=== PATIENT | female | born 1955 | race Caucasian/White ===

== ENCOUNTER → 2017-05-15 | Outpatient (CLI) | payer BC ==
[~2017-05-15] MED LIST: ASPCH81X PO; CHOL20007 PO; LORA-554 PO; LOVA20TA4 PO; MULT1CAP6 PO; OMEGCAP2 PO; OMEP20TA PO; VITACAP26 PO
--- NOTE | 2017-05-16 13:46 | MAMMOGRAPHY REPORT ---
BILATERAL DIGITAL SCREENING MAMMOGRAM TOMOSYNTHESIS WITH CAD: 05/15/2017 CLINICAL HISTORY: Routine screening. Patient has no complaints. TECHNIQUE: Breast tomosynthesis in addition to standard 2D mammography was performed. Current study was also evaluated with a Computer Aided Detection (CAD) system. COMPARISON: Comparison is made to exams dated: 03/07/2016 mammogram, 02/11/2015 mammogram, 07/24/2013 m ammogram, 07/11/2012 mammogram, 01/25/2011 mammogram - [facility], and 08/12/2009 mammo gram. BREAST COMPOSITION: There are scattered areas of fibroglandular density in both breasts. FINDINGS: The parenchymal pattern is similar to prior mammograms. There are stable asymmetries in t he left breast. No developing mass, architectural distortion or cluster of suspicious microcalcifica tions is seen. IMPRESSION: ACR BI-RADS CATEGORY 2: BENIGN There is no mammographic evidence of malignancy. A 1 year screening mammogram is recommended. The pa tient will receive written notification of the results. Approximately 10% of breast cancers are not detected with mammography. A negative mammographic report should not delay biopsy if a clinically suggestive mass is present. Mayda Noyola M.D. ay/:05/15/2017 16:02:51 Interior Painter: Rajani Pringle, [facility] letter sent: Normal 1/2 BI-RADS Code: ACR BI-RADS Category 2: Benign
== END | disposition home or self-care (01) ==
LOC: C.MAMM 11:32
PROVIDERS: ATTEND Family Medicine
DX: Z12.31 Encounter for screening mammogram for malignant neoplasm of breast (principal)

== ENCOUNTER → 2017-09-16 | Outpatient (CLI) | payer OTHER ==
--- NOTE | 2017-09-16 09:27 | DIAGNOSTIC IMAGING REPORT ---
(BARIUM SWALLOW) ESOPHAGUS CLINICAL HISTORY: 62 years-old Female with DYSPHAGIA. Acute cough with dysphagia and epigastric abdominal pain TECHNIQUE: Barium contrast and effervescent crystals were administered to the patient under fluoroscopic examination. Multiple images were obtained and submitted for review. FLUOROSCOPY TIME: 1 minutes. 24 images were submitted. COMPARISON: None. Findings: During deglutition, contrast material flowed freely through the cervical esophagus. No filling defect or mucosal abnormality is identified. No abnormal stricturing or mass effect is seen. The mid to distal esophagus is well coated and distended. No abnormal stricturing or mucosal abnormality is identified. Trace amount of silent aspiration was noted. Technologist prompted the patient to cough which only partially cleared the barium from the glottis. Small sliding-type hiatal hernia with extensive gastroesophageal reflux extending to the level of the upper thoracic esophagus. Mild esophageal dysmotility with some tertiary contractions of the distal esophagus. IMPRESSION: 1. Trace amount of silent aspiration. Further evaluation with speech pathology recommended. 2. Hiatal hernia with extensive gastroesophageal reflux extending to the upper thoracic esophagus. 3. Mild esophageal dysmotility. The above report was generated using voice recognition software. It may contain grammatical, syntax or spelling errors. Electronically signed by: Johny Marcelo M.D. 09/16/2017 9:26 AM Dictated Date/Time: 09/16/2017 9:23 AM
== END | disposition home or self-care (01) ==
LOC: C.RAD 08:25
PROVIDERS: ATTEND Family Medicine
DX: R13.10 Dysphagia, unspecified (principal); K44.9 Diaphragmatic hernia without obstruction or gangrene; K22.4 Dyskinesia of esophagus

== ENCOUNTER 2024-05-07 20:49 | Observation (INO) ==
[2024-05-07 21:28] LABS: iSTAT Creatinine 0.7 mg/dl (0.6-1.3); iSTAT Hemoglobin 16.7 g/dl (12.0-16.0); iSTAT Ionized Calcium 1.17 mmol/l (1.12-1.32); iSTAT Potassium 3.9 mmol/L (3.3-5.0)
[2024-05-07 21:34] LABS: Appearance Urine Cloudy (Clear); Bacteria Urine Automated None Seen (None Seen); Bilirubin Urine Negative (Negative); Blood Urine Negative (Negative); Cast Urine Automated 0-2 /lpf (0-2); Color Urine Yellow; Glucose Urine UA Negative (Negative); Ketones Urine Trace (Negative); Leukocyte Esterase Urine 2+ (Negative); Nitrite Urine Negative (Negative); Protein Urine Negative (Negative); RBC Urine Automated 0-2 /hpf (0-2); Specific Gravity Urine 1.018 (1.000-1.030); Urobilinogen Urine Negative (Negative); WBC Urine Automated 21-50 /hpf (0-5); pH Urine 7.5 (4.5-7.5)
[2024-05-07 21:39] LABS: Albumin Globulin Ratio 1.6 (0.9-2); Albumin Level 4.6 gm/dl (3.4-5.0); BUN Creatinine Ratio 18.8 (10-20); Basophils # (auto) 0.05 K/uL (0.00-0.20); Basophils % (auto) 0.3 %; Bilirubin,Total 1.5 mg/dl (0.2-1.0); Calcium 9.7 mg/dl (8.6-10.3); Creatinine Clr Calc Pharmacy 76.9 ml/min; Eosinophils # (auto) 0.04 K/uL (0.00-0.50); Eosinophils % (auto) 0.2 %; Globulin 2.9 gm/dl (2.5-4.0); Hematocrit (blood only) 46.1 % (37.0-47.0); Hemoglobin 16.4 g/dl (12.0-16.0); Immature Granulocytes # (auto) 0.11 K/uL (0.01-0.20); Immature Granulocytes % (auto) 0.6 %; Lymphocytes # (auto) 2.38 K/uL (1.20-3.40); Lymphocytes % (auto) 12.5 %; Mean Corpuscular Hemoglobin 30.9 pg (25.0-34.0); Mean Corpuscular Hgb Conc 35.6 g/dL (32.0-36.0); Mean Corpuscular Volume 86.8 fL (80.0-100.0); Mean Platelet Volume 8.7 fL (9.4-12.4); Monocytes # (auto) 1.59 K/uL (0.11-0.59); Monocytes % (auto) 8.4 %; Platelet Count 329 K/uL (130-400); RDW Coefficient of Variation 12.9 % (11.5-14.5); RDW Standard Deviation 40.4 fL (36.4-46.3); Red Blood Count 5.31 M/uL (4.20-5.40); Total Protein 7.5 gm/dl (6.0-8.3); White Blood Count 18.97 K/ul (4.8-10.8)
[2024-05-07] MEDS: OPTIRAY 320 100ml IV ONE (21:40)
[2024-05-07 21:45] LABS: Troponin I High Sensitivity 20.8 pg/ml (0-14)
--- NOTE | 2024-05-07 21:58 | Emergency Department Note ---
ED Provider Note History of Present Illness Chief Complaint: Abdominal Pain Stated Complaint: ABD PAIN, BACK PAIN, NAUSEA, Time Seen by Provider: 05/07/24 21:02 Source: patient Mode of arrival: ambulatory Limitations: no limitations This patient is a 69-year-old female who presents to the emergency department for evaluation of right lower quadrant abdominal pain. Patient reports that pain started around 2:30 AM and has been constant since. Pain is in the right lower abdomen. She states this is worse when she walks or moves. She has had some nausea and did vomit once this morning. She denies any fever/chills, urinary symptoms or changes in bowel movements. She denies any history of abdominal surgery. Home Medications Medication Instructions Recorded Confirmed Type ASPIRIN (ASPIRIN CHEWABLE) 81 mg PO DAILY ##0 09/26/12 History CHOLECALCIFEROL (VITAMIN D3) 1 tab PO QAM ##0 09/26/12 History LORATADINE (ALLERGY RELIEF) 1 tab PO QAM ##0 09/26/12 History Lovastatin (Mevacor) 20 mg PO DAILY #0 tabs 09/26/12 History MULTIPLE VITAMINS W/ MINERALS 1 tab PO QD@08 ##0 09/26/12 History (MULTI FOR HER) OMEGA-3 FATTY ACIDS (FISH OIL) 1 cap PO QAM ##0 09/26/12 History OMEPRAZOLE 1 tab PO QAM ##0 09/26/12 History VITAMINS C & E (VITAMIN C) 1 cap PO QAM ##0 09/26/12 History Allergies Allergy/AdvReac Type Severity Reaction Status Date / Time Penicillins Allergy Unknown ` Verified 04/29/15 13:47 Sulfa (Sulfonamide Allergy Unknown ` Verified 09/25/12 15:24 Antibiotics) Tetracyclines Allergy Unknown ` Verified 09/25/12 15:24 Past Med/Surg History Problem List Medical History (Updated 05/08/24 @ 01:29 by Homero Whelan MD) Encounter for pre-operative examination Acute appendicitis Social History Smoking Status: Never smoker Preferred Language: Burkinan Feels Safe at Home: Yes Physical Exam Vital Signs Vital Signs - 24 hr 05/07/24 20:51 05/07/24 21:20 05/07/24 21:20 Temperature 37.3 C Temperature Source Temporal Artery Scan Pulse Rate 106 H Pulse Rate [Finger] 91 H Pulse Rhythm [Finger] Pulse Strength [Finger] Respiratory Rate 18 Respiratory Effort / Characteristics Non-Labored Spontaneous Respiratory Depth Normal Normal Respiratory Pattern Regular Blood Pressure 150/76 H Blood Pressure [Right Arm] Blood Pressure Mean 100 Blood Pressure Mean [Right Arm] Blood Pressure Position Sitting Blood Pressure Position [Right Arm] Pulse Oximetry 96 Oxygen Delivery Method Room Air Room Air Room Air Sepsis Recent Fever Within 48 Hours No Sepsis New/Unexplained Change in Mental Status N/A Sepsis Action Taken by Nursing No Action Required 05/07/24 22:04 05/07/24 23:00 05/08/24 01:00 Temperature Temperature Source Pulse Rate 83 Pulse Rate [Finger] 82 78 Pulse Rhythm [Finger] Regular Regular Pulse Strength [Finger] Normal Normal Respiratory Rate 20 20 Respiratory Effort / Characteristics Non-Labored Spontaneous Non-Labored Respiratory Depth Normal Normal Respiratory Pattern Blood Pressure Blood Pressure [Right Arm] 119/69 105/68 Blood Pressure Mean Blood Pressure Mean [Right Arm] 85 80 Blood Pressure Position Blood Pressure Position [Right Arm] Lying Pulse Oximetry 96 96 Oxygen Delivery Method Room Air Room Air Sepsis Recent Fever Within 48 Hours Sepsis New/Unexplained Change in Mental Status Sepsis Action Taken by Nursing 05/08/24 01:16 Temperature Temperature Source Pulse Rate Pulse Rate [Finger] Pulse Rhythm [Finger] Pulse Strength [Finger] Respiratory Rate Respiratory Effort / Characteristics Respiratory Depth Respiratory Pattern Blood Pressure Blood Pressure [Right Arm] Blood Pressure Mean Blood Pressure Mean [Right Arm] Blood Pressure Position Blood Pressure Position [Right Arm] Pulse Oximetry Oxygen Delivery Method Room Air Sepsis Recent Fever Within 48 Hours Sepsis New/Unexplained Change in Mental Status Sepsis Action Taken by Nursing VITALS: Vitals are noted on the nurse's note and reviewed by myself. GENERAL: This is a 69-year-old female, in no acute distress, well-developed well-nourished. SKIN: The skin was without rashes. EYES: Pupils equal round and reactive to light and accommodation. MOUTH: Mucous membranes moist. HEART: Regular rate and rhythm without murmurs gallops or rubs. LUNGS: Clear to auscultation bilaterally without wheezes, rales or rhonchi. ABDOMEN: Positive bowel sounds x 4. Moderate tenderness in the right lower quadrant with positive guarding and rebound tenderness. NEURO: Patient was alert and oriented to person place and time. Course Administered Medications Discontinued Medications Fentanyl Citrate (Fentanyl Citrate Pf 100 Mcg/2 Ml Vial) 50 mcg IV NOW STA Stop: 05/07/24 21:56 Last Admin: 05/07/24 22:08 Dose: 50 mcg Documented By: GINA Levofloxacin/Dextrose (Levaquin/D5w) 500 mg in 100 mls @ 100 mls/hr IV NOW STA Stop: 05/08/24 00:51 Last Admin: 05/08/24 01:02 Dose: 100 mls/hr Documented By: GINA Metronidazole (Flagyl) 500 mg in 100 mls @ 100 mls/hr IV NOW STA; Protocol Stop: 05/08/24 00:51 Last Admin: 05/08/24 01:02 Dose: 100 mls/hr Documented By: GINA Ioversol (Optiray 320 100ml) 92 ml IV ONCE ONE Stop: 05/07/24 21:40 Last Admin: 05/07/24 21:40 Dose: 92 ml Documented By: DARSHAN Morphine Sulfate (Morphine Sulfate 4 Mg/Ml 1 Ml Carp\Vial) 4 mg IV NOW STA Stop: 05/07/24 23:42 Last Admin: 05/07/24 23:45 Dose: 4 mg Documented By: GINA Ondansetron HCl (Ondansetron Inj 2 Mg/Ml 2 Ml Vial) 4 mg IV NOW STA Stop: 05/07/24 21:56 Last Admin: 05/07/24 22:09 Dose: 4 mg Documented By: GINA Medical Decision Making Differential Diagnosis Appendicitis, ovarian cyst, ovarian torsion, ectopic , TOA, PID, infections, diverticulitis, UTI, obstruction, mesenteric ischemia, aortic pathology, inflammatory bowel disease, renal colic, PUD, pancreatitis, biliary pathology, hernia, volvulus, constipation, as well as other pathologies. Laboratory Data Attestation: I reviewed the patient's lab results. 05/07/24 21:10 05/07/24 21:10 Lab Results 05/07/24 05/07/24 05/07/24 Range/Units 21:10 21:15 21:16 WBC 18.97 H (4.8-10.8) K/ul RBC 5.31 (4.20-5.40) M/uL Hgb 16.4 H (12.0-16.0) g/dl POC Hgb 16.7 H (12.0-16.0) g/dl Hct 46.1 (37.0-47.0) % POC Hct 49 H (37-47) % MCV 86.8 (80.0-100.0) fL MCH 30.9 (25.0-34.0) pg MCHC 35.6 (32.0-36.0) g/dL RDW Std Deviation 40.4 (36.4-46.3) fL RDW Coeff of Aman 12.9 (11.5-14.5) % Plt Count 329 (130-400) K/uL MPV 8.7 L (9.4-12.4) fL Immature Gran % (Auto) 0.6 % Neut % (Auto) 78.0 % Lymph % (Auto) 12.5 % Austin % (Auto) 8.4 % Eos % (Auto) 0.2 % Baso % (Auto) 0.3 % Neut # (Auto) 14.80 H (1.40-6.50) K/uL Lymph # (Auto) 2.38 (1.20-3.40) K/uL Austin # (Auto) 1.59 H (0.11-0.59) K/uL Eos # (Auto) 0.04 (0.00-0.50) K/uL Baso # (Auto) 0.05 (0.00-0.20) K/uL Immature Gran # (Auto) 0.11 (0.01-0.20) K/uL PT 11.0 (9.0-12.0) Seconds INR 1.0 (0.9-1.1) POC Sodium 134 L (135-144) mmol/L Sodium 133 L (136-145) mmol/L POC Potassium 3.9 (3.3-5.0) mmol/L Potassium 4.0 (3.5-5.1) mmol/L POC Chloride 99 L (101-112) mmol/L Chloride 100 (98-107) mmol/L Carbon Dioxide 23 (21-32) mmol/L POC Total CO2 22 L (24-31) mmol/L Anion Gap 10 (3-11) POC Anion Gap 17.0 (16-25) mmol/L POC BUN 13 (7-18) mg/dl BUN 13 (6-23) mg/dl Creatinine 0.69 (0.6-1.2) mg/dl POC Creatinine 0.7 (0.6-1.3) mg/dl Est Cr Clr Drug Dosing 76.9 ml/min eGFR 95.06 BUN/Creatinine Ratio 18.8 (10-20) Glucose 121 H (70-99(Fasting)) mg/dl POC Glucose (other) 120 H (70-99) mg/dl Lactate 1.4 (0.4-2.0) mmol/L Calcium 9.7 (8.6-10.3) mg/dl POC Ioniz Calcium Taras 1.17 (1.12-1.32) mmol/l Total Bilirubin 1.5 H (0.2-1.0) mg/dl AST 14 (13-39) U/L ALT 17 (7-52) U/L Alkaline Phosphatase 78 (34-104) U/L Troponin I High Sens 20.8 H (0-14) pg/ml Total Protein 7.5 (6.0-8.3) gm/dl Albumin 4.6 (3.4-5.0) gm/dl Globulin 2.9 (2.5-4.0) gm/dl Albumin/Globulin Ratio 1.6 (0.9-2) Lipase 19 (11-82) U/L Urine Color Yellow Urine Appearance Cloudy A (Clear) Urine pH 7.5 (4.5-7.5) Ur Specific Brule 1.018 (1.000-1.030) Urine Protein Negative (Negative) Urine Glucose (UA) Negative (Negative) Urine Ketones Trace H (Negative) Urine Blood Negative (Negative) Urine Nitrite Negative (Negative) Urine Bilirubin Negative (Negative) Urine Urobilinogen Negative (Negative) Ur Leukocyte Esterase 2+ H (Negative) Urine WBC (Auto) 21-50 H (0-5) /hpf Urine RBC (Auto) 0-2 (0-2) /hpf U Hyaline Cast (Auto) 0-2 (0-2) /lpf U Epithel Cells (Auto) 3-5 H (0-2) /hpf Urine Bacteria (Auto) None Seen (None Seen) 05/07/24 Range/Units 23:15 WBC (4.8-10.8) K/ul RBC (4.20-5.40) M/uL Hgb (12.0-16.0) g/dl POC Hgb (12.0-16.0) g/dl Hct (37.0-47.0) % POC Hct (37-47) % MCV (80.0-100.0) fL MCH (25.0-34.0) pg MCHC (32.0-36.0) g/dL RDW Std Deviation (36.4-46.3) fL RDW Coeff of Aman (11.5-14.5) % Plt Count (130-400) K/uL MPV (9.4-12.4) fL Immature Gran % (Auto) % Neut % (Auto) % Lymph % (Auto) % Austin % (Auto) % Eos % (Auto) % Baso % (Auto) % Neut # (Auto) (1.40-6.50) K/uL Lymph # (Auto) (1.20-3.40) K/uL Austin # (Auto) (0.11-0.59) K/uL Eos # (Auto) (0.00-0.50) K/uL Baso # (Auto) (0.00-0.20) K/uL Immature Gran # (Auto) (0.01-0.20) K/uL PT (9.0-12.0) Seconds INR (0.9-1.1) POC Sodium (135-144) mmol/L Sodium (136-145) mmol/L POC Potassium (3.3-5.0) mmol/L Potassium (3.5-5.1) mmol/L POC Chloride (101-112) mmol/L Chloride (98-107) mmol/L Carbon Dioxide (21-32) mmol/L POC Total CO2 (24-31) mmol/L Anion Gap (3-11) POC Anion Gap (16-25) mmol/L POC BUN (7-18) mg/dl BUN (6-23) mg/dl Creatinine (0.6-1.2) mg/dl POC Creatinine (0.6-1.3) mg/dl Est Cr Clr Drug Dosing ml/min eGFR BUN/Creatinine Ratio (10-20) Glucose (70-99(Fasting)) mg/dl POC Glucose (other) (70-99) mg/dl Lactate (0.4-2.0) mmol/L Calcium (8.6-10.3) mg/dl POC Ioniz Calcium Taras (1.12-1.32) mmol/l Total Bilirubin (0.2-1.0) mg/dl AST (13-39) U/L ALT (7-52) U/L Alkaline Phosphatase (34-104) U/L Troponin I High Sens 24.3 H (0-14) pg/ml Total Protein (6.0-8.3) gm/dl Albumin (3.4-5.0) gm/dl Globulin (2.5-4.0) gm/dl Albumin/Globulin Ratio (0.9-2) Lipase (11-82) U/L Urine Color Urine Appearance (Clear) Urine pH (4.5-7.5) Ur Specific Brule (1.000-1.030) Urine Protein (Negative) Urine Glucose (UA) (Negative) Urine Ketones (Negative) Urine Blood (Negative) Urine Nitrite (Negative) Urine Bilirubin (Negative) Urine Urobilinogen (Negative) Ur Leukocyte Esterase (Negative) Urine WBC (Auto) (0-5) /hpf Urine RBC (Auto) (0-2) /hpf U Hyaline Cast (Auto) (0-2) /lpf U Epithel Cells (Auto) (0-2) /hpf Urine Bacteria (Auto) (None Seen) Imaging Data Attestation: I personally reviewed and interpreted this imaging study as follows: Radiologist's Impression: Abdomen/Pelvis CT 05/07/24 20:59 Exam(s): CT ABDOMEN + PELVIS With Contrast IV Amt: 92 ml opti 320 EXAM: CT Abdomen and Pelvis With Intravenous Contrast CLINICAL HISTORY: RLQ abd pain. TECHNIQUE: Axial computed tomography images of the abdomen and pelvis with intravenous contrast. CTDI is 21.53 mGy and DLP is 1025.75 mGy-cm. Automated exposure control was utilized for the study. A dose lowering technique was utilized adhering to the principles of ALARA. CONTRAST: Patient received 92 ml opti 320 of IV contrast COMPARISON: No relevant prior studies available. FINDINGS: Lung bases: Unremarkable. No mass. No consolidation. ABDOMEN: Liver: Unremarkable. No mass. Gallbladder and bile ducts: Unremarkable. No calcified stones. No ductal dilation. Pancreas: Unremarkable. No mass. No ductal dilation. Spleen: Unremarkable. No splenomegaly. Adrenals: Unremarkable. No mass. Kidneys and ureters: No obstructive uropathy. No obstructing renal or ureteral calculi. No hydronephrosis or hydroureter. Stomach and bowel: Moderate size hiatal hernia. No obstruction or ileus. No evidence for diverticulitis. PELVIS: Appendix: Diffusely enlarged appendix up to 11.8 mm diameter with thickened bejarano multiple appendicoliths. Mild surrounding infiltration with minimal associated free fluid. No free intraperitoneal gas. Bladder: Unremarkable. No mass. Reproductive: Uterus is unremarkable. Ovaries are not well characterized. ABDOMEN and PELVIS: Intraperitoneal space: No free air. No free fluid. Bones/joints: No acute fracture. Degenerative changes of the spine. Soft tissues: Unremarkable. Vasculature: Atherosclerotic vascular calcifications. No abdominal aortic aneurysm. Lymph nodes: Unremarkable. No enlarged lymph nodes. IMPRESSION: Acute appendicitis with appendicoliths. Mild surrounding infiltration and minimal free fluid. No free intraperitoneal gas to indicate a perforation. Electronically signed by: Nick Elaine M.D. 05/07/24 22:34 PM MDM Narrative This patient is a 69-year-old female who presents to the emergency department for evaluation of right lower quadrant abdominal pain. Labs revealed a leukocytosis of almost 19,000. Lactate was not elevated. Patient treated with IV fentanyl, Zofran and then morphine for pain. CT showed evidence of acute appendicitis. This was discussed with the patient. Case was then discussed with general surgery who agreed to evaluate the patient and take her for operative management. She will be admitted by them. She was given a dose of Levaquin/Flagyl due to penicillin allergy. All findings discussed with the patient. She remained in stable condition while in the emergency department. Discharge Plan Visit Data Chief Complaint: Abdominal Pain Stated Complaint: ABD PAIN, BACK PAIN, NAUSEA, ED Provider: Aren Granados ED Midlevel Provider: Chantel Hogan Patient Disposition: Admitted As Inpatient Discharge Instructions Interventions: ED Discharge Assessment Last Done: 05/08/24 01:16 Forms Stand Alone Forms: My [employer] Prescriptions Prescriptions: No Action ASPIRIN (ASPIRIN CHEWABLE) 81 MG CHEWABLE TAB 81 mg PO DAILY Qty: 0 MULTIPLE VITAMINS W/ MINERALS (MULTI FOR HER) 1 CAP capsule 1 tab PO QD@08 Qty: 0 CHOLECALCIFEROL (VITAMIN D3) 2,000 UNIT tablet 1 tab PO QAM Qty: 0 LORATADINE (ALLERGY RELIEF) 10 MG tablet 1 tab PO QAM Qty: 0 Lovastatin (Mevacor) 20 MG tablet 20 mg PO DAILY Qty: 0 OMEGA-3 FATTY ACIDS (FISH OIL) 1 CAP capsule 1 cap PO QAM Qty: 0 OMEPRAZOLE 20 MG tablet 1 tab PO QAM Qty: 0 VITAMINS C & E (VITAMIN C) 1 CAP capsule 1 cap PO QAM Qty: 0 Referrals Referrals: Brooklyn Painting MD [Primary Care Provider] -
[2024-05-07] MEDS: fentaNYL citrate PF 100 MCG/2 ML VIAL IV STA (22:08)
[2024-05-07] MEDS: ONDANSETRON INJ 2 MG/ML 2 ML VIAL IV STA (22:09)
--- NOTE | 2024-05-07 22:35 | CT Scan Report ---
Exam(s): CT ABDOMEN + PELVIS With Contrast IV Amt: 92 ml opti 320 EXAM: CT Abdomen and Pelvis With Intravenous Contrast CLINICAL HISTORY: RLQ abd pain. TECHNIQUE: Axial computed tomography images of the abdomen and pelvis with intravenous contrast. CTDI is 21.53 mGy and DLP is 1025.75 mGy-cm. Automated exposure control was utilized for the study. A dose lowering technique was utilized adhering to the principles of ALARA. CONTRAST: Patient received 92 ml opti 320 of IV contrast COMPARISON: No relevant prior studies available. FINDINGS: Lung bases: Unremarkable. No mass. No consolidation. ABDOMEN: Liver: Unremarkable. No mass. Gallbladder and bile ducts: Unremarkable. No calcified stones. No ductal dilation. Pancreas: Unremarkable. No mass. No ductal dilation. Spleen: Unremarkable. No splenomegaly. Adrenals: Unremarkable. No mass. Kidneys and ureters: No obstructive uropathy. No obstructing renal or ureteral calculi. No hydronephrosis or hydroureter. Stomach and bowel: Moderate size hiatal hernia. No obstruction or ileus. No evidence for diverticulitis. PELVIS: Appendix: Diffusely enlarged appendix up to 11.8 mm diameter with thickened bejarano multiple appendicoliths. Mild surrounding infiltration with minimal associated free fluid. No free intraperitoneal gas. Bladder: Unremarkable. No mass. Reproductive: Uterus is unremarkable. Ovaries are not well characterized. ABDOMEN and PELVIS: Intraperitoneal space: No free air. No free fluid. Bones/joints: No acute fracture. Degenerative changes of the spine. Soft tissues: Unremarkable. Vasculature: Atherosclerotic vascular calcifications. No abdominal aortic aneurysm. Lymph nodes: Unremarkable. No enlarged lymph nodes. IMPRESSION: Acute appendicitis with appendicoliths. Mild surrounding infiltration and minimal free fluid. No free intraperitoneal gas to indicate a perforation. Electronically signed by: Nick Elaine M.D. 05/07/24 22:34 PM
[2024-05-07] MEDS: MoRPHine SULFATE 4 MG/ML 1 ML CARP\\VIAL IV STA (23:45)
--- NOTE | 2024-05-08 00:55 | History & Physical Report ---
<Statement entered by Ariana Gómez, - 05/08/24 01:49> I have seen and examined this patient. I agree with the above plan. She has a very enlarged appendix with fecaliths. We will proceed to the OR for laparoscopic appendectomy. Consent has been obtained. Date of Service May 08, 2024 Assessment & Plan (1) Acute appendicitis: Plan: Patient is a 69-year-old female who prestented to the emergency department for RLQ abdominal pain. She was worked up and found to have an elevated WBC at [address] findings concerning for acute appendicitis. Patient was seen and evaluated early this morning at bedside. On exam she is nontoxic appearing, vitals are stable, however she is moderately tender in the RLQ. Patent, and her who was at bedside during my exam, were informed on CT findings and discussed undergoing surgical intervention. Patient's case was discussed with attending surgeon controls technician, Dr. Gómez, and recommend the following: -Patient will be admitted to the surgical service -Will proceed with surgical intervention for laparoscopic appendectomy -Keep NPO, IV fluids -Pain control -Zofran as needed for nausea -IV antibiotics have been initiated in the ED with Levaquin and Flagyl History of Present Illness Chief Complaint: Abdominal pain Primary Care Provider: [employer] MD Patient is a 69-year-old female who presented to the emergency department with complains of abdominal pain. Patient states that around 2AM this morning she was awoken from her sleep with severe abdominal pain. Patient states at first the pain was somewhat generalized in her mid-abdomen however throughout the day had progressed into her right lower quadrant. She tried to rest at home throughout the day however she states the pain was persistent . She states the pain is worse with any sort of movement or walking. She did have decreased appetite, associated nausea, and one episode of vomiting today. Prior to the onset of her symptoms she states she felt in her normal state of health and denies any recent illness. She otherwise denies any CP, SOB, changes in bowel or bladder habits with the onset of her symptoms. She denies any pertinent medical history however does tell me she hasn't seen a doctor in quite some time. She also denies any previous abdominal surgeries. The patient underwent workup in the ED and was found to have an elevated WBC at [address] findings concerning for acute appendicitis. Surgical team was consulted and patient was evaluated at bedside. Patient is resting comfortably in bed, stable vitals, and is nontoxic appearing. On exam she is moderately tender in the right lower quadrant of her abdomen. Allergies Allergy/AdvReac Type Severity Reaction Status Date / Time Penicillins Allergy Unknown ` Verified 04/29/15 13:47 Sulfa (Sulfonamide Allergy Unknown ` Verified 09/25/12 15:24 Antibiotics) Tetracyclines Allergy Unknown ` Verified 09/25/12 15:24 Home Medications Medication Instructions Recorded Confirmed Type ASPIRIN (ASPIRIN CHEWABLE) 81 mg PO DAILY ##0 09/26/12 History CHOLECALCIFEROL (VITAMIN D3) 1 tab PO QAM ##0 09/26/12 History LORATADINE (ALLERGY RELIEF) 1 tab PO QAM ##0 09/26/12 History Lovastatin (Mevacor) 20 mg PO DAILY #0 tabs 09/26/12 History MULTIPLE VITAMINS W/ MINERALS 1 tab PO QD@08 ##0 09/26/12 History (MULTI FOR HER) OMEGA-3 FATTY ACIDS (FISH OIL) 1 cap PO QAM ##0 09/26/12 History OMEPRAZOLE 1 tab PO QAM ##0 09/26/12 History VITAMINS C & E (VITAMIN C) 1 cap PO QAM ##0 09/26/12 History Past Med/Surg History Problem List (Updated 05/08/24 @ 00:47 by Grisel Kaplan PA-C) Acute appendicitis Social History Smoking Status: Never smoker Preferred Language: Telugu Feels Safe at Home: Yes Review of Systems Review of Systems: All systems reviewed & are unremarkable except as noted in HPI & below Physical Exam Constitutional: WD/WN, vitals as above Respiratory: normal respiratory effort, lungs clear to auscultation Cardiovascular: RRR, no murmur, no edema Gastrointestinal (Abdomen): Abdomen soft, minimally distended, moderate +TTP in the RLQ with +McBurney's and rebound tenderness Skin: no rashes, warm and dry Psychiatric: A+Ox3, euthymic affect Results & Data Results & Data Vital Signs (Past 12 Hours) Vital Signs Temp Pulse Pulse Resp BP BP Pulse Ox 05/07/24 23:00 82 20 119/69 96 05/07/24 22:04 83 05/07/24 21:20 05/07/24 21:20 91 H 05/07/24 20:51 37.3 C 106 H 18 150/76 H 96 O2 Del Method 05/07/24 23:00 Room Air 05/07/24 22:04 05/07/24 21:20 Room Air 05/07/24 21:20 Room Air 05/07/24 20:51 Room Air Diagnostic Findings EXAM: CT Abdomen and Pelvis With Intravenous Contrast CLINICAL HISTORY: RLQ abd pain. TECHNIQUE: Axial computed tomography images of the abdomen and pelvis with intravenous contrast. CTDI is 21.53 mGy and DLP is 1025.75 mGy-cm. Automated exposure control was utilized for the study. A dose lowering technique was utilized adhering to the principles of ALARA. CONTRAST: Patient received 92 ml opti 320 of IV contrast COMPARISON: No relevant prior studies available. FINDINGS: Lung bases: Unremarkable. No mass. No consolidation. ABDOMEN: Liver: Unremarkable. No mass. Gallbladder and bile ducts: Unremarkable. No calcified stones. No ductal dilation. Pancreas: Unremarkable. No mass. No ductal dilation. Spleen: Unremarkable. No splenomegaly. Adrenals: Unremarkable. No mass. Kidneys and ureters: No obstructive uropathy. No obstructing renal or ureteral calculi. No hydronephrosis or hydroureter. Stomach and bowel: Moderate size hiatal hernia. No obstruction or ileus. No evidence for diverticulitis. PELVIS: Appendix: Diffusely enlarged appendix up to 11.8 mm diameter with thickened bejarano multiple appendicoliths. Mild surrounding infiltration with minimal associated free fluid. No free intraperitoneal gas. Bladder: Unremarkable. No mass. Reproductive: Uterus is unremarkable. Ovaries are not well characterized. ABDOMEN and PELVIS: Intraperitoneal space: No free air. No free fluid. Bones/joints: No acute fracture. Degenerative changes of the spine. Soft tissues: Unremarkable. Vasculature: Atherosclerotic vascular calcifications. No abdominal aortic aneurysm. Lymph nodes: Unremarkable. No enlarged lymph nodes. IMPRESSION: Acute appendicitis with appendicoliths. Mild surrounding infiltration and minimal free fluid. No free intraperitoneal gas to indicate a perforation. PG Care Time/CCT Total # of Minutes Spent Total Time Spent with Patient: Total time spent is greater than 50% in coordination of care (as documented) at patient's floor/unit and/or counseling patient: [place] [address] INT INP/OBS CARE 1/40MIN Patient Type New History Problem Focused Exam Problem Focused Medical Decision Making Straight Forward Diagnoses Acute appendicitis K35.80
[2024-05-08] MEDS ORDERED: fentaNYL citrate PF 100 MCG/2 ML VIAL ONE (00:56)
[2024-05-08] MEDS ORDERED: KETOROLAC 30 MG/ML VIAL ONE (00:56)
[2024-05-08] MEDS ORDERED: ONDANSETRON INJ 2 MG/ML 2 ML VIAL ONE (00:56)
[2024-05-08] MEDS ORDERED: LIDOCAINE 2% 2 ML VIAL/AMP(20MG/ML) INFIL ONE (00:56)
[2024-05-08] MEDS ORDERED: PROPOFOL IV EMULSION 10 MG/ML 20 ML VIAL IV ONE (00:56)
[2024-05-08] MEDS ORDERED: DEXAMETHASONE SOD INJ 4 MG/ML VIAL ONE (00:56)
[2024-05-08] MEDS ORDERED: SUGAMMADEX SODIUM 200 MG/2 ML VIAL IV ONE (00:56)
[2024-05-08] MEDS ORDERED: ROCURONIUM BROMIDE 10 MG/ML 5 ML VIAL IV ONE (00:56)
[2024-05-08] MEDS ORDERED: SUCCINYLCHOLINE CHLORIDE 20 MG/ML 10 ML VIAL IV ONE (00:56)
[2024-05-08] MEDS ORDERED: MIDAZOLAM HCL 1 MG/ML 2ML VIAL ONE (00:56)
[2024-05-08] MEDS: metroNIDAZOLE 500 MG/100 ML BAG IV STA (01:02)
[2024-05-08] MEDS: levoFLOXacin/D5W 500 MG/100 ML BAG IV STA (01:02)
--- NOTE | 2024-05-08 01:28 | Anesthesiology Consultation ---
Date of Service May 08, 2024 Assessment & Plan (1) Encounter for pre-operative examination: Chart Review Chart Review: Acceptable Risk for Surgery and Patient NOT seen in Pre Admission Testing Consults Requested none History Surgery Operation Date: 05/08/24 01:20 Proposed Procedures p Laparoscopic Appendectomy - Ariana Gómez DO Height/Weight Height: 5 ft 3 in Weight: 75.3 kg Allergies Allergy/AdvReac Type Severity Reaction Status Date / Time Penicillins Allergy Unknown ` Verified 04/29/15 13:47 Sulfa (Sulfonamide Allergy Unknown ` Verified 09/25/12 15:24 Antibiotics) Tetracyclines Allergy Unknown ` Verified 09/25/12 15:24 Medications Home Medications Medication Instructions Recorded Confirmed Last Taken ASPIRIN (ASPIRIN CHEWABLE) 81 mg PO DAILY ##0 09/26/12 Unknown CHOLECALCIFEROL (VITAMIN D3) 1 tab PO QAM ##0 09/26/12 Unknown LORATADINE (ALLERGY RELIEF) 1 tab PO QAM ##0 09/26/12 Unknown Lovastatin (Mevacor) 20 mg PO DAILY #0 tabs 09/26/12 Unknown MULTIPLE VITAMINS W/ MINERALS 1 tab PO QD@08 ##0 09/26/12 Unknown (MULTI FOR HER) OMEGA-3 FATTY ACIDS (FISH OIL) 1 cap PO QAM ##0 09/26/12 Unknown OMEPRAZOLE 1 tab PO QAM ##0 09/26/12 Unknown VITAMINS C & E (VITAMIN C) 1 cap PO QAM ##0 09/26/12 Unknown Past Medical History Medical History (Updated 05/08/24 @ 01:29 by Homero Whelan MD) Encounter for pre-operative examination Acute appendicitis Exercise / Class Metabolic Activity II 4-5 Yardwork/Stairs/Walk up hill Past Surgical History foot surgery Past Anesthesia History No Hx of Anesthesia Complications and No Family Hx of Anesthesia Complications History of PONV No Hx of PONV and No Hx of Motion Sickness Social History Smoking Status: Never smoker Physical Exam Vital Signs Last Vital Signs Temp 37.3 C 05/07/24 20:51 Pulse 78 05/08/24 01:00 Resp 20 05/08/24 01:00 BP 105/68 05/08/24 01:00 Pulse Ox 96 05/08/24 01:00 O2 Del Method Room Air 05/08/24 01:16 Testing Laboratory Results 05/07/24 21:10 12/19/24 21:10 PT 11.0 Seconds (9.0-12.0) 05/07/24 21:10 INR 1.0 (0.9-1.1) 05/07/24 21:10 Urine Color Yellow 05/07/24 21:15 Urine Appearance Cloudy (Clear) A 05/07/24 21:15 Urine pH 7.5 (4.5-7.5) 05/07/24 21:15 Ur Specific [place] 1.018 (1.000-1.030) 05/07/24 21:15 Urine Protein Negative (Negative) 05/07/24 21:15 Urine Glucose (UA) Negative (Negative) 05/07/24 21:15 Urine Ketones Trace (Negative) H 05/07/24 21:15 Urine Nitrite Negative (Negative) 05/07/24 21:15 Ur Leukocyte Esterase 2+ (Negative) H 05/07/24 21:15 Urine WBC (Auto) 21-50 /hpf (0-5) H 05/07/24 21:15 Urine RBC (Auto) 0-2 /hpf (0-2) 05/07/24 21:15 U Hyaline Cast (Auto) 0-2 /lpf (0-2) 05/07/24 21:15 U Epithel Cells (Auto) 3-5 /hpf (0-2) H 05/07/24 21:15 Urine Bacteria (Auto) None Seen (None Seen) 05/07/24 21:15 05/07/24 21:16 POC Glucose (other) 120 H Electrocardiogram Date: 05/07/24 Findings: + NSR @ normal ecg
[2024-05-08] MEDS ORDERED: fentaNYL citrate PF 100 MCG/2 ML VIAL IV PRN (01:30)
[2024-05-08] MEDS ORDERED: ONDANSETRON INJ 2 MG/ML 2 ML VIAL IV PRN ×2 (01:30→04:15)
[2024-05-08] MEDS ORDERED: PROMETHAZINE HCL 6.25 MG in SODIUM CHLORIDE 0.9% 50 ML IV PRN (01:30)
[2024-05-08] MEDS ORDERED: ePHEDrine sulfate 50 MG/ML AMP IV PRN (01:30)
[2024-05-08] MEDS ORDERED: HYDROmorphone INJ 1 MG/ML SYRINGE IV PRN (01:30)
[2024-05-08] MEDS ORDERED: ATROPINE SULFATE 0.1 MG/ML 10ML SYR IV PRN (01:30)
[2024-05-08] MEDS ORDERED: VASOPRESSIN 20 UNIT/ML VIAL ONE (02:04)
[2024-05-08] MEDS: BUPIVACAINE/EPINEPHRINE 0.5% MPF 1:200,000 30 ML VIAL ONE (03:06)
--- NOTE | 2024-05-08 03:07 | Operative Report ---
PG Post Operative Report Pre & Post Diagnosis Operation Date: 05/08/24 01:20 Pre-Op Diagnosis: Acute appendicitis Post-Op Diagnosis: Acute appendicitis I identified the patient and participated in the time-out.: Yes Procedure Operation Date: 05/08/24 01:20 Actual Procedures p Laparoscopic Appendectomy(Not Applicable) - Ariana Gómez DO Surgeon Ariana Gómez DO Core Filer SOO Devlin Estimated Blood Loss 3 Findings See Below gangrenous appendix with patchy necrosis Specimens appendix Drains none Anesthesia Type General Complications None Indications acute appendicitis Description of Procedure The patient was brought back to the operating room and placed on the operating room table in supine position. She was connected to cardiac and oxygen monitoring, supplemental O2 was provided and SCDs were applied to bilateral lower extremities. The patient was administered general anesthesia and a secure airway was established. The abdomen was prepped and draped in typical sterile fashion and a timeout was conducted. Local anesthetic was used anesthetize the skin and subcutaneous tissues at all incision sites prior to making incision. Incisions were made with an 11 blade. Intra-abdominal access was gained using a Veress needle at the infraumbilical fold. This access was confirmed using the saline drop test. CO2 insufflation was then initiated to a establish pneumoperitoneum to a goal pressure of 15 mmHg. Once pneumoperitoneum was established, a 5 mm laparoscope was used to insert a 5 mm trocar under direct visualization using an Optiview port. A 12 mm trocar was inserted the left lower quadrant additional 5 mm trocar inserted at the suprapubic region. The trocars were inserted under direct visualization. There was a small amount of pathologic fluid identified at the right pelvis and this was suctioned away. The OR table was positioned in Trendelenburg and left side down. The appendix was identified wrapping behind the terminal ileum. As the terminal ileum was gently peeled away from the appendix and the appendix became further exposed, areas of patchy necrotic tissue were noted along its surface as well as severe ischemia and early gangrene. The appendix was very thickened and enlarged. The base was much healthier, but this too was slightly thickened. A window was created at the base of the appendix between the appendix and mesoappendix using blunt dissection with a [place] dissector. A purple loaded 45 mm Endo ARLIN stapler was used to ligate and transect the appendix at its base across the base of the cecum. The mesoappendix and appendiceal artery were taken with the sonicision. There was no bleeding. The appendix was placed in an Endo Catch bag and removed from the abdomen. The left lower quadrant incision had to be slightly enlarged at the skin to allow for appendix retrieval. During the enlargement process the wall of the appendix was compromised. Of note, the appendix had not perforated within the abdomen. The appendix was sent to pathology for further analysis and a label container. The abdomen was inspected again for fluid. There was no additional fluid identified. The OR table was returned to the neutral position and again no new fluid accumulation. The instruments were removed and CO2 insufflation was discontinued. Excess pneumoperitoneum was evacuated. The trocars were removed. The fascia of the left lower quadrant incision was closed using 0 Vicryl suture. Additional local anesthetic was injected into the subcutaneous tissues. The skin was approximated using 4-0 Vicryl suture. The abdomen was wiped clean with a saline soaked lap pad. The incisions were sealed with Dermabond. The patient tolerated the procedure well. She was awakened from anesthesia, the secure airway was removed and she was transferred to recovery in stable condition. I attest to the content of the Intraoperative Record and any orders documented therein. Any exceptions are noted below.
[2024-05-08] MEDS ORDERED: MoRPHine SULFATE 2 MG/ML CARP IV PRN ×2 (03:12→04:15)
[2024-05-08] MEDS ORDERED: oxyCODONE HCL IR 5 MG TAB (IMMEDIATE RELEASE) PO PRN ×2 (03:12)
[2024-05-08] MEDS ORDERED: MoRPHine SULFATE 4 MG/ML 1 ML CARP\\VIAL IV PRN ×2 (03:12→04:15)
--- NOTE | 2024-05-08 03:29 | Anesthesiology Progress Note ---
Date of Service May 08, 2024 Anesthesia Post Procedure Vital Signs Vital Signs: Temp Pulse Pulse Resp BP BP Pulse Ox 05/08/24 03:23 36.7 C 96 H 18 139/77 97 05/08/24 01:16 05/08/24 01:00 78 20 105/68 96 05/07/24 23:00 82 20 119/69 96 05/07/24 22:04 83 05/07/24 21:20 05/07/24 21:20 91 H 05/07/24 20:51 37.3 C 106 H 18 150/76 H 96 O2 Del Method 05/08/24 03:23 Room Air 05/08/24 01:16 Room Air 05/08/24 01:00 Room Air 05/07/24 23:00 Room Air 05/07/24 22:04 05/07/24 21:20 Room Air 05/07/24 21:20 Room Air 05/07/24 20:51 Room Air Pain Intensity Right Lower Abdomen: Pain Intensity: 8 Transfer of Care Handoff Completed per policy Notes Mental Status: alert / awake / arousable and participated in evaluation Patient Amnestic to Procedure: Yes Nausea / Vomiting: adequately controlled Pain: adequately controlled Airway Patency, RR, SpO2: stable & adequate BP & HR: stable & adequate Hydration State: stable & adequate Anesthetic Complications: no major complications apparent and Pt Satisfied with anesthetic care
[2024-05-08] MEDS ORDERED: ACETAMINOPHEN 1,000 MG/100 ML VIAL IV PRN (04:15)
[2024-05-08] MEDS: ACETAMINOPHEN 500 MG TAB PO SCH (05:57)
[2024-05-08] MEDS: metroNIDAZOLE 500 MG/100 ML BAG IV SCH (07:53)
[2024-05-08 08:22] LABS: BUN Creatinine Ratio 20.3 (10-20); Calcium 8.9 mg/dl (8.6-10.3); Creatinine Clr Calc Pharmacy 82.9 ml/min; Potassium 4.1 mmol/L (3.5-5.1)
[2024-05-08 08:36] LABS: Hematocrit (blood only) 40.7 % (37.0-47.0); Hemoglobin 14.2 g/dl (12.0-16.0); Mean Corpuscular Hemoglobin 30.9 pg (25.0-34.0); Mean Corpuscular Hgb Conc 34.9 g/dL (32.0-36.0); Mean Corpuscular Volume 88.5 fL (80.0-100.0); Mean Platelet Volume 8.7 fL (9.4-12.4); Platelet Count 263 K/uL (130-400); RDW Standard Deviation 42.3 fL (36.4-46.3); White Blood Count 18.06 K/ul (4.8-10.8)
--- NOTE | 2024-05-08 08:56 | Surgery Progress Note ---
Date of Service May 08, 2024 Assessment & Plan (1) Acute appendicitis: Plan: pod 1 doing well ok for d/c instructions given Admission and Anticipated Discharge Date Admission Date: May 08, 2024 Subjective pt seen. feeling great. would like to go home Physical Exam Physical Exam: alert. nad. abd: soft. expected tenderness Results & Data Vital Signs (Past 12 Hours) Vital Signs Temp Pulse Pulse Resp BP Pulse Ox O2 Del Method 05/08/24 07:23 36.8 C 89 18 111/73 96 Room Air 05/08/24 06:32 36.5 C 88 17 107/72 95 Nasal Cannula 05/08/24 05:45 36.6 C 88 18 107/68 98 Nasal Cannula 05/08/24 05:31 36.6 C 88 16 112/74 96 Nasal Cannula 05/08/24 05:03 36.6 C 93 H 16 103/69 97 Nasal Cannula 05/08/24 04:40 Nasal Cannula 05/08/24 04:24 36.6 C 95 H 16 97/64 L 95 Nasal Cannula 05/08/24 04:24 36.6 C 104 H 16 103/67 95 Nasal Cannula 05/08/24 04:15 36.6 C 104 H 16 103/67 95 Nasal Cannula 05/08/24 03:43 36.7 C 102 H 18 109/61 93 Room Air 05/08/24 03:33 36.5 C 101 H 18 106/61 93 Room Air 05/08/24 03:23 36.7 C 96 H 18 139/77 97 Room Air 05/08/24 01:16 Room Air 05/08/24 01:00 78 20 105/68 96 Room Air 05/07/24 23:00 82 20 119/69 96 Room Air 05/07/24 22:04 83 05/07/24 21:20 Room Air 05/07/24 21:20 91 H Room Air O2 Flow Rate 05/08/24 07:23 05/08/24 06:32 2 05/08/24 05:45 2 05/08/24 05:31 2 05/08/24 05:03 2 05/08/24 04:40 2 05/08/24 04:24 2 05/08/24 04:24 2 05/08/24 04:15 2 05/08/24 03:43 05/08/24 03:33 05/08/24 03:23 05/08/24 01:16 05/08/24 01:00 05/07/24 23:00 05/07/24 22:04 05/07/24 21:20 05/07/24 21:20 PG Care Time/CCT Total # of Minutes Spent Total Time Spent with Patient: Total time spent is greater than 50% in coordination of care (as documented) at patient's floor/unit and/or counseling patient: Coding Level of Care Code 64987 Post Operative Follow-Up Diagnoses Acute appendicitis K35.80
[2024-05-08 09:01] LABS: Basophils # (auto) 0.03 K/uL (0.00-0.20); Basophils % (auto) 0.2 %; Immature Granulocytes # (auto) 0.11 K/uL (0.01-0.20); Immature Granulocytes % (auto) 0.6 %; Lymphocytes # (auto) 0.92 K/uL (1.20-3.40); Lymphocytes % (auto) 5.1 %; Monocytes # (auto) 0.57 K/uL (0.11-0.59); Monocytes % (auto) 3.2 %; Neutrophils # (auto) 16.43 K/uL (1.40-6.50); Neutrophils % (auto) 90.9 %; Polychromasia 1+
[2024-05-08] MEDS ORDERED: levoFLOXacin/D5W 500 MG/100 ML BAG IV SCH (22:00)
--- NOTE | 2024-05-08 22:29 | Electrocardiogram Report ---
Test Reason : Blood Pressure : */* mmHG Vent. Rate : 86 BPM Atrial Rate : 86 BPM P-R Int : 132 ms QRS Dur : 70 ms QT Int : 366 ms P-R-T Axes : 32 15 28 degrees QTcB Int : 437 ms Normal sinus rhythm Normal ECG No previous ECGs available Confirmed by Marco Tomlinson ([id number]) on 05/08/2024 10:28:55 PM Referred By: REFERRED SELF Confirmed By: Marco Tomlinson
== END 2024-05-08 12:05 | disposition home or self-care (01) ==
LOC: 3W 20:49 → ED 20:49 → 3W 05-08 01:16